=== PATIENT | female | born 1995 ===

== ENCOUNTER 2021-05-24 13:49 | Emergency (ER) | payer OTHER, MEDICAID, SELFPAY ==
[2021-05-24 13:59] VITALS: BP 99/66; PULSE 109; RESP 12; TEMP 36.7; O2SAT 99
--- NOTE | 2021-05-24 17:02 | PC.NURSE ---
Pt. called [id number] and [id number] for room placement no answer
== END 2021-05-25 05:11 | disposition left against medical advice (07) ==
DX: R51.9 Headache, unspecified (principal)
CPT/HCPCS: 99199